=== PATIENT | male | born 1970 | race Two or more races ===

== ENCOUNTER 2016-11-06 04:54 | Emergency (ER) | payer MEDICAID ==
[~2016-11-06] VITALS: Ht 180.3 cm; Wt 96.6 kg
[~2016-11-06 04:54] MED LIST: ASPI325T47 PO; CEPH500C PO; FOLI1TAB51 PO; GABA-339 PO; OMEP20CA5 OR; SUCR1TAB; TRAM-297 PO
[2016-11-06 05:43] LABS: Urine Bilirubin Negative (Negative); Urine Blood Negative /uL (Negative); Urine Color Yellow (Yellow); Urine Glucose Normal (Normal); Urine Ketone Negative (Negative); Urine Nitrite Negative (Negative); Urine RBC 1 /hpf (0 - 3); Urine Squamous Epithelial Cell FEW /hpf (<5); Urine pH 8.5 (5.0-8.0)
[2016-11-06 08:04] LABS: Basophils # (auto) 0.1 uL; Eosinophils # (auto) 0 uL; Eosinophils % (auto) 0.8 % (0.0-7.0); Hematocrit 50.7 % (41.0-53.0); Hemoglobin 16.9 g/dL (13.5-17.5); Lymphocytes # (auto) 1.1 uL; Lymphocytes % (auto) 23.8 % (10.0-50.0); Mean Corpuscular Hemoglobin 31.6 pg (28.0-32.0); Mean Corpuscular Hgb Conc. 33.3 g/dL (32.0-36.0); Mean Corpuscular Volume 94.8 fL (80.0-100.0); Mean Platelet Volume 9.6 fL (7.4-10.4); Monocytes # (auto) 0.5 uL; Monocytes % (auto) 10.9 % (0.0-12.0); Neutrophils # (auto) 2.9 uL; Neutrophils % (auto) 62.5 % (37.0-80.0); Platelet Count (auto) 82 10^3/uL (140-450); Red Cell Distribution Width 13.3 % (11.6-16.0); White Blood Cell 4.6 10^3/uL (4.4-10.8)
[2016-11-06 08:33] LABS: Albumin 3.2 g/dL (3.4-5.0); Amylase 45 U/L (25-115); Anion Gap 9 (5-15); Aspartate Aminotransferase 80 U/L (15-37); BUN/Creatinine Ratio 8.9; Blood Urea Nitrogen 5 mg/dL (7-18); Calcium 8.1 mg/dL (8.5-10.1); Carbon Dioxide 27 mmol/L (21-32); Chloride 104 mmol/L (98-107); GFR African American 203 mL/min; GFR Non-African American 168 mL/min; Glucose 150 mg/dL (74-106); Magnesium 1.6 mg/dL (1.6-2.6); Potassium 3.1 mmol/L (3.5-5.1); Sodium 140 mmol/L (136-145)
[2016-11-06 08:35] LABS: Alkaline Phosphatase 182 U/L (45-117); Bilirubin, Total 1.5 mg/dL (0.2-1.0); Total Protein 8.7 g/dL (6.4-8.2)
[2016-11-06] MEDS ORDERED: SODIUM CHLORIDE 0.9% 1,000 ML IVB ONE (09:51)
[2016-11-06] MEDS ORDERED: NALBUPHINE HCL 10 MG/1ml INJECTION IV ONE ×2 (10:00→15:00)
[2016-11-06] MEDS ORDERED: THIAMINE INJ 100 MG, MULTIPLE VITAMIN 10 ML, FOLIC ACID 1 MG, MAGNESIUM SULF SDV 50% 8 ... IV ONE ×5 (10:00)
[2016-11-06] MEDS ORDERED: METOCLOPRAMIDE HCL 5MG/ml INJ 2ml VIAL IV ONE ×2 (10:00→15:00)
[2016-11-06] MEDS ORDERED: POTASSIUM CHL 10% (20 MEQ/15ML) ORAL SOLN PO ONE (10:30)
[2016-11-06 10:38] LABS: INR 1.26 (0.9-1.15); Partial Thromboplastin Time 30.1 sec (22.64-33.71)
[2016-11-06 14:30] VITALS: BP 147/92
== END 2016-11-06 15:37 | disposition home or self-care (01) ==
LOC: ER 04:55
DX: K29.20 Alcoholic gastritis without bleeding (principal); R91.1 Solitary pulmonary nodule; Z79.899 Other long term (current) drug therapy; Z79.82 Long term (current) use of aspirin; J44.9 Chronic obstructive pulmonary disease, unspecified; I10 Essential (primary) hypertension; B19.20 Unspecified viral hepatitis C without hepatic coma; E46 Unspecified protein-calorie malnutrition; Z68.29 Body mass index [BMI] 29.0-29.9, adult; E87.6 Hypokalemia; K80.20 Calculus of gallbladder without cholecystitis without obstruction; K74.60 Unspecified cirrhosis of liver
CPT/HCPCS: 36415; 71020; 74176; 80053; 80320; 81001; 82150; 83690; 83735; 85025; 85610; 85730; 93005; 94761; 96365; 96366; 96375; 96376; 99285; G0434; J2300; J2765; J3411; J3475; J7030

== ENCOUNTER 2016-11-08 17:27 | Emergency (ER) | payer MEDICAID ==
[~2016-11-08] VITALS: Ht 177.8 cm; Wt 97.5 kg
[2016-11-08] MEDS ORDERED: ONDANSETRON HCL 4 MG/2 ML VIAL IV ONE (17:45)
[2016-11-08] MEDS ORDERED: HYDROmorphone HCL 2 MG/ML VL IV ONE (17:45)
[2016-11-08 19:19] VITALS: BP 148/113
[2016-11-08] MEDS ORDERED: HYDROcodone-ACET 5/325MG TAB PO ONE (19:30)
[2016-11-08] MEDS ORDERED: MORPHINE SULFATE 4 MG/ML SYRG IV ONE (20:30)
== END 2016-11-08 21:19 | disposition home or self-care (01) ==
LOC: EDBD 17:27 → ER 17:40
DX: S82.144A Nondisplaced bicondylar fracture of right tibia, initial encounter for closed fracture (principal); S83.511A Sprain of anterior cruciate ligament of right knee, initial encounter; J44.9 Chronic obstructive pulmonary disease, unspecified; X50.1XXA Overexertion from prolonged static or awkward postures, initial encounter; Y93.01 Activity, walking, marching and hiking; Y99.8 Other external cause status; Y92.89 Other specified places as the place of occurrence of the external cause
CPT/HCPCS: 29505; 73562; 73700; 96374; 96375; 99284; J1170; J2270; J2405

== ENCOUNTER 2017-10-31 08:47 | Emergency (ER) | payer MEDICAID ==
[~2017-10-31] VITALS: Ht 180.3 cm; Wt 98.9 kg
[~2017-10-31 08:47] MED LIST changes: -OMEP20CA5 OR; +OMEP20CA74 OR
[2017-10-31 09:09] LABS: Urine WBC None Seen /hpf (0 - 3)
[2017-10-31 09:37] LABS: Urine Bacteria NONE SEEN /hpf (None Seen); Urine Blood Negative /uL (Negative); Urine Specific Gravity 1.002 (1.001-1.035)
[2017-10-31 10:08] LABS: Basophils # (auto) 0 uL; Hemoglobin 17.9 g/dL (13.5-17.5); Monocytes # (auto) 0.6 uL; White Blood Cell 6.1 10^3/uL (4.4-10.8)
[2017-10-31 10:12] LABS: Basophils % (auto) 0.5 % (0.0-2.0); Eosinophils # (auto) 0.1 uL; Eosinophils % (auto) 0.9 % (0.0-7.0); Hematocrit 51.8 % (41.0-53.0); Lymphocytes # (auto) 1.7 uL; Lymphocytes % (auto) 27.8 % (10.0-50.0); Mean Corpuscular Hemoglobin 33.4 pg (28.0-32.0); Mean Corpuscular Hgb Conc. 34.6 g/dL (32.0-36.0); Mean Corpuscular Volume 96.5 fL (80.0-100.0); Monocytes % (auto) 10.4 % (0.0-12.0); Neutrophils # (auto) 3.7 uL; Neutrophils % (auto) 60.4 % (37.0-80.0); Nucleated Red Blood Cells % 0.6 %; Platelet Count (auto) 99 10^3/uL (140-450); Red Blood Cells 5.37 10^6/uL (4.5-5.90); Red Cell Distribution Width 13.5 % (11.8-14.3)
[2017-10-31 10:14] LABS: Alanine Aminotransferase 47 U/L (16-61); Albumin 3.6 g/dL (3.4-5.0); Alkaline Phosphatase 158 U/L (45-117); Amylase 43 U/L (25-115); Anion Gap 11 (5-15); Aspartate Aminotransferase 53 U/L (15-37); BUN/Creatinine Ratio 8.7; Bilirubin, Total 1.3 mg/dL (0.2-1.0); Blood Urea Nitrogen 6 mg/dL (7-18); Calcium 8.8 mg/dL (8.5-10.1); Carbon Dioxide 22 mmol/L (21-32); Chloride 102 mmol/L (98-107); GFR African American 159 mL/min; GFR Non-African American 131 mL/min; Glucose 143 mg/dL (74-106); Lipase 327 U/L (73-393); Potassium 3.2 mmol/L (3.5-5.1); Sodium 135 mmol/L (136-145); Total Protein 8.8 g/dL (6.4-8.2)
[2017-10-31] MEDS ORDERED: POTASSIUM CHL 10% (20 MEQ/15ML) 15ml ORAL SOLN PO ONE (12:15)
[2017-10-31 13:01] VITALS: BP 157/98
== END 2017-10-31 13:03 | disposition home or self-care (01) ==
LOC: ER 08:47
DX: K80.20 Calculus of gallbladder without cholecystitis without obstruction (principal); F10.20 Alcohol dependence, uncomplicated; K70.30 Alcoholic cirrhosis of liver without ascites; K76.6 Portal hypertension; J44.9 Chronic obstructive pulmonary disease, unspecified; Z79.82 Long term (current) use of aspirin; Z87.11 Personal history of peptic ulcer disease; Z87.442 Personal history of urinary calculi
CPT/HCPCS: 36415; 74176; 80053; 80320; 81001; 82150; 83690; 84484; 85025